=== PATIENT | female | born 1940 ===

== ENCOUNTER 2018-09-11 08:07 | Day surgery (SDC) | payer MEDICARE, MEDICAID ==
[2018-09-11 09:45] VITALS: BMI 24.8
[2018-09-11] MEDS ORDERED: Lactated Ringer's 500 ML IV ONE (09:52)
[2018-09-11 10:15] VITALS: O2SAT 100
[2018-09-11] MEDS ORDERED: Propofol 10 mg/ml Inj (20 ML) ONE (11:14)
[2018-09-11] MEDS ORDERED: Etomidate 20 mg/10ml Inj IV ONE (11:25)
[2018-09-11 11:36] VITALS: TEMP 97.9
[2018-09-11 11:55] VITALS: BP 104/45; PULSE 65; RESP 16
== END 2018-09-11 13:37 | disposition home or self-care (01) ==
LOC: H.ENDO 08:07
PROVIDERS: ATTEND Internal Medicine Gastroenterology
DX: D50.9 Iron deficiency anemia, unspecified (principal); Z86.73 Personal history of transient ischemic attack (TIA), and cerebral infarction without residual deficits; E11.9 Type 2 diabetes mellitus without complications; E78.5 Hyperlipidemia, unspecified; I10 Essential (primary) hypertension; K57.30 Diverticulosis of large intestine without perforation or abscess without bleeding
CPT/HCPCS: 45378; 82948; J2001; J2704; J7120